=== PATIENT | male | born 1955 | race Native Hawaiian/Other Pacific Islander ===

== ENCOUNTER 2018-07-01 08:18 | Day surgery (SDC) | payer BC ==
[2018-07-01 08:57] LABS: PLATELET COUNT 201 K/uL (142-355)
[2018-07-01 09:05] LABS: POTASSIUM 4.1 mmol/L (3.6-5.2)
== END 2018-07-01 12:36 | disposition home or self-care (01) ==
LOC: OR 08:18
PROVIDERS: Student in an Organized Health Care Education/Training Program
PROC: 06BY0ZC Excision of Hemorrhoidal Plexus, Open Approach (ICD-10-PCS; principal; 2018-07-01)
DX: K64.1 Second degree hemorrhoids (principal); K64.4 Residual hemorrhoidal skin tags
CPT/HCPCS: 80053; 85027; J0132; J0690; J1170; J2001; J2250; J2405; J2704; J2765; J3010; J3490

== ENCOUNTER 2021-11-07 10:56 | Outpatient (CLI) | payer OTHER | END 2021-11-07 20:22 | disposition home or self-care (01) | LOC: CT 10:56 | PROVIDERS: ATTEND Internal Medicine | DX: R14.0 Abdominal distension (gaseous) (principal); Z80.42 Family history of malignant neoplasm of prostate; E87.6 Hypokalemia; E83.42 Hypomagnesemia; E87.1 Hypo-osmolality and hyponatremia | CPT/HCPCS: Q9963 ==

== ENCOUNTER 2022-09-28 11:36 | Outpatient (CLI) | payer OTHER | END 2022-09-28 19:16 | disposition home or self-care (01) | LOC: US 11:36 | PROVIDERS: ATTEND Nurse Practitioner | DX: R55 Syncope and collapse (principal) ==